=== PATIENT | female | born 1985 | race African-American/Black ===

== ENCOUNTER 2018-06-23 12:16 | Emergency (ER) | payer SELFPAY ==
[~2018-06-23] VITALS: Ht 162.6 cm; Wt 74.4 kg
[2018-06-23 12:21] VITALS: BP 127/89
[2018-06-23] MEDS ORDERED: LISINOPRIL5 MG ORAL (12:26)
--- NOTE | 2018-06-23 12:30 | NUR ---
ED Nurse Note: Patient walked into ED c/o right lower quadrant abdominal pain for 2 days. patient also reports vaginal spotting started 2 days ago, denies any dysuria. patient reports hx of endometriosis, partial hysterectomy done in 2018. patient is alert awake x4 ambulatory, daughter by the beside
--- NOTE | 2018-06-23 13:11 | Emergency Room Report ---
History of Present Illness General Chief Complaint: Abdominal Pain Source: Patient Present Illness HPI 32-year-old female presents to the emergency department complaining of 10 out of 10 in severity right lower quadrant/adnexal pain and tenderness since last night. Patient reports history of endometriosis which required a partial hysterectomy which was performed this past February 2018. Patient states that she also has had some new onset vaginal spotting after just having her period 2 weeks ago. She denies fevers or chills she reports nausea denies vomiting, constipation, diarrhea, external vaginal lesions, swollen tender lymph nodes or joint pain. Patient does report some scant vaginal discharge she denies recent antibiotic use she reports that she is sexually active and in a monogamous relationship. She also reports history of ovarian cyst. He reports increased pressure pain especially during urination she denies dysuria, hematuria, urinary frequency or urgency. Denies low back pain. Allergies: Coded Allergies: AMOXICILLIN (Verified Allergy, Severe, Hives, 06/23/18) IBUPROFEN (Verified Allergy, Severe, Rash, 06/23/18) Patient History Past Medical History: see triage record Past Surgical History: none Pertinent Family History: none Last Menstrual Period: 2 months Now: No Reviewed Nursing Documentation: PMH: Agreed; PSxH: Agreed Nursing Documentation-PMH Past Medical History: No History, Except For Hx Hypertension: Yes Review of Systems All Other Systems: negative except mentioned in HPI Physical Exam Vital Signs Date Time Temp Pulse Resp B/P (MAP) Pulse Ox O2 Delivery O2 Flow Rate FiO2 06/23/18 12:21 98.1 101 20 127/89 98 Room Air Sp02 EP Interpretation: reviewed, normal General Appearance: no apparent distress, alert, GCS 15, non-toxic Head: normocephalic, atraumatic Eyes: bilateral eye normal inspection, bilateral eye PERRL ENT: hearing grossly normal, normal voice Neck: full range of motion Respiratory: lungs clear, normal breath sounds, speaking full sentences Cardiovascular #1: regular rate, rhythm Gastrointestinal: normal bowel sounds, soft, non-distended, tenderness - RLQ/ Right adnexal. pt. has positive rosvigs tenderness on exam. Rectal: deferred Genitourinary: normal inspection, no CVA tenderness, ext genitalia/vag normal, other - pt. with severe vaginal sensitivity, and CMT Musculoskeletal: back normal, gait/station normal, normal range of motion, non- tender Neurologic: alert, oriented x3, responsive, motor strength/tone normal, sensory intact, speech normal, grossly normal Psychiatric: judgement/insight normal Skin: normal color, no rash, warm/dry, well hydrated Lymphatic: no adenopathy Medical Decision Making PA Attestation Dr. tang is my supervising Physician whom patient management has been discussed with. Diagnostic Impression: Primary Impression: Pelvic pain ER Course 32-year-old female presents to the emergency department complaining of 10 out of 10 in severity right lower quadrant/adnexal pain and tenderness since last night. Patient reports history of endometriosis which required a partial hysterectomy which was performed this past February 2018. Patient states that she also has had some new onset vaginal spotting after just having her period 2 weeks ago. She denies fevers or chills she reports nausea denies vomiting, constipation, diarrhea, external vaginal lesions, swollen tender lymph nodes or joint pain. Patient does report some scant vaginal discharge she denies recent antibiotic use she reports that she is sexually active and in a monogamous relationship. She also reports history of ovarian cyst. He reports increased pressure pain especially during urination she denies dysuria, hematuria, urinary frequency or urgency. Denies low back pain or hx of renal calculi. Ddx considered but are not limited to Diverticulitis, acute appy, ovarian torsion, ectopic , PID tubo-ovarian abscess, ovarian cyst, renal calculi. Vital signs: are WNL, pt. is afebrile H&PE are most consistent with possible ovarian cyst, however due to presentation will r/o torsion, ectopic, acute appendicitis and stone. ORDERS: -CBC, CMP, LIPASE: Unremarkable -UA: -URINE HCG: Negative -CT Abdomen and pelvis: unremarkable--" No definite acute abnormality, fatty liver, evidence of prior cholecystectomy and hysterectomy." Per official radiology report- Please see report for specific details. -Pelvic US Complete: limited exam due to pt. having tenderness to vaginal probe , ovaries were not visualized. this was d/w pt. that conditions such as torsion cannot be r/o . ED INTERVENTIONS: - Morphine 4mg IV x 2 - 5mg [place] - 2g Azithromycin Pt. requests to be D/C, she will follow up with an OBGYN. pt. given strict ED return precautions. d/w pt. that due to severe tenderness and notable d/c on pelvic exam she will be treated for PID. Due to allergies alternative treatment is 2g Azithromycin. DISCHARGE: At this time pt. is stable for d/c to home. Will provide printed patient care instructions, and any necessary prescriptions. Care plan and follow up instructions have been discussed with the patient prior to discharge. Labs Test 06/23/18 12:30 06/23/18 13:15 Urine Color Pale yellow Urine Appearance Clear Urine pH 8 (4.5-8.0) Urine Specific [place] 1.010 (1.005-1.035) Urine Protein Negative (NEGATIVE) Urine Glucose (UA) Negative (NEGATIVE) Urine Ketones Negative (NEGATIVE) Urine Blood Negative (NEGATIVE) Urine Nitrite Negative (NEGATIVE) Urine Bilirubin Negative (NEGATIVE) Urine Urobilinogen Normal MG/DL (0.0-1.0) Urine Leukocyte Esterase 2+ (NEGATIVE) Urine RBC 0 /HPF (0 - 2) Urine WBC 2-4 /HPF (0 - 2) Urine Squamous Epithelial Cells Few /LPF (NONE/OCC) Urine Bacteria Occasional /HPF (NONE) Urine HCG, Qualitative Negative (NEGATIVE) White Blood Count 9.4 K/UL (4.8-10.8) Red Blood Count 4.76 M/UL (4.20-5.40) Hemoglobin 13.9 G/DL (12.0-16.0) Hematocrit 41.8 % (37.0-47.0) Mean Corpuscular Volume 88 FL (80-99) Mean Corpuscular Hemoglobin 29.2 PG (27.0-31.0) Mean Corpuscular Hemoglobin Concent 33.3 G/DL (32.0-36.0) Red Cell Distribution Width 11.9 % (11.6-14.8) Platelet Count 287 K/UL (150-450) Mean Platelet Volume 12.3 FL (6.5-10.1) Neutrophils (%) (Auto) % (45.0-75.0) Lymphocytes (%) (Auto) % (20.0-45.0) Monocytes (%) (Auto) % (1.0-10.0) Eosinophils (%) (Auto) % (0.0-3.0) Basophils (%) (Auto) % (0.0-2.0) Differential Total Cells Counted 100 Neutrophils % (Manual) 44 % (45-75) Lymphocytes % (Manual) 50 % (20-45) Monocytes % (Manual) 6 % (1-10) Eosinophils % (Manual) 0 % (0-3) Basophils % (Manual) 0 % (0-2) Band Neutrophils 0 % (0-8) Platelet Estimate Adequate Platelet Morphology Normal Red Blood Cell Morphology Normal Sodium Level 141 MMOL/L (136-145) Potassium Level 3.6 MMOL/L (3.5-5.1) Chloride Level 102 MMOL/L (98-107) Carbon Dioxide Level 27 MMOL/L (21-32) Anion Gap 12 mmol/L (5-15) Blood Urea Nitrogen 9 mg/dL (7-18) Creatinine 0.9 MG/DL (0.55-1.30) Estimat Glomerular Filtration Rate > 60 mL/min (>60) Glucose Level 97 MG/DL (74-106) Calcium Level 9.2 MG/DL (8.5-10.1) Total Bilirubin 0.3 MG/DL (0.2-1.0) Aspartate Amino Transf (AST/SGOT) 18 U/L (15-37) Alanine Aminotransferase (ALT/SGPT) 32 U/L (12-78) Alkaline Phosphatase 92 U/L (46-116) Total Protein 8.5 G/DL (6.4-8.2) Albumin 3.8 G/DL (3.4-5.0) Globulin 4.7 g/dL Albumin/Globulin Ratio 0.8 (1.0-2.7) Lipase 341 U/L (73-393) CT/MRI/US Diagnostic Results CT/MRI/US Diagnostic Results #1: Imaging Test Ordered: CT Abdomen and Pelvis Impression " No definite acute abnormality, fatty liver, evidence of prior cholecystectomy and hysterectomy." Per official radiology report- Please see report for specific details. CT/MRI/US Diagnostic Results #2: Imaging Test Ordered: Pelvic US- complete Impression "Limited exam due to lack of endovaginal images and bladder distention the uterus is not demonstrated reportedly surgically absent neither ovary can be visualized" -- Per official radiology report- Please see report for specific details. Last Vital Signs Date Time Temp Pulse Resp B/P (MAP) Pulse Ox O2 Delivery O2 Flow Rate FiO2 06/23/18 12:21 98.1 101 20 127/89 98 Room Air Status: improved Disposition: HOME, SELF-CARE Condition: Stable Scripts Hydrocodone Bit/Acetaminophen 7.5-325* (NORCO 7.5-325*) 1 Each Tablet 1 TAB ORAL Q6H PRN for For Pain, #12 TAB 0 Refills Prov: Lissett Tam 06/23/18 Patient Instructions: Pelvic Pain, Female Additional Instructions: Take medications as directed. Follow up with a OBGYN within 3 days, even if your symptoms have resolved. Return sooner to ED if new symptoms occur, or current symptoms become worse. - Please note that this Emergency Department Report was dictated using [employer] pit attendant technology software, occasionally this can lead to erroneous entry secondary to interpretation by the dictation equipment. Lissett Tam Jun 23, 2018 13:11
[2018-06-23] MEDS ORDERED: Morphine Sulfate 4mg/ml Inj (IV USE ONLY) IVP ONE ×2 (13:15→15:15)
[2018-06-23 13:39] LABS: APPEARANCE,URINE CLEAR; BILIRUBIN, URINE NEGATIVE (NEGATIVE); COLOR,URINE PALE YELLOW; GLUCOSE, URINE (UA) NEGATIVE (NEGATIVE); KETONES,URINE NEGATIVE (NEGATIVE); LEUKOCYTE ESTERASE ,URINE 2+ (NEGATIVE); NITRITE,URINE NEGATIVE (NEGATIVE); PH,URINE 8 (4.5-8.0); PROTEIN,URINE NEGATIVE (NEGATIVE); UROBILINOGEN,URINE NORMAL MG/DL (0.0-1.0)
[2018-06-23 13:39] LABS: HEMATOCRIT 41.8 % (37.0-47.0); HEMOGLOBIN 13.9 G/DL (12.0-16.0); MEAN CORPUSCULAR VOLUME 88 FL (80-99); RED BLOOD COUNT 4.76 M/UL (4.20-5.40); RED CELL DISTRIBUTION WIDTH 11.9 % (11.6-14.8); WHITE BLOOD COUNT 9.4 K/UL (4.8-10.8)
[2018-06-23 13:56] VITALS: BP 121/82
[2018-06-23 14:01] LABS: ANION GAP 12 mmol/L (5-15); BLOOD UREA NITROGEN 9 mg/dL (7-18); CALCIUM 9.2 MG/DL (8.5-10.1); CARBON DIOXIDE 27 MMOL/L (21-32); CHLORIDE 102 MMOL/L (98-107); CREATININE 0.9 MG/DL (0.55-1.30); POTASSIUM 3.6 MMOL/L (3.5-5.1); SODIUM 141 MMOL/L (136-145)
[2018-06-23 14:05] LABS: ALANINE AMINOTRANSFERASE 32 U/L (12-78); ALBUMIN 3.8 G/DL (3.4-5.0); ALBUMIN/GLOBULIN RATIO 0.8 (1.0-2.7); ALKALINE PHOSPHATASE 92 U/L (46-116); ASPARTATE AMINO TRANSFERASE 18 U/L (15-37); BILIRUBIN,TOTAL 0.3 MG/DL (0.2-1.0)
--- NOTE | 2018-06-23 14:15 | NUR ---
ED Nurse Note: patient went down for CT scan
[2018-06-23 14:27] LABS: PLATELET COUNT 287 K/UL (150-450)
[2018-06-23] MEDS ORDERED: DiphenhydrAMINE 50mg/ml Inj IVP ONE (14:45)
[2018-06-23] MEDS: HYDROcodone/Acetamin 7.5/325 tab ORAL ONE ×2 (14:56→15:08)
--- NOTE | 2018-06-23 14:56 | Diagnostic Imaging Report ---
Clinical Indication: Right lower quadrant abdominal pain for 2 days Technique: No oral contrast utilized, per emergency room physician request IV administration nonionic contrast. Venous phase spiral acquisition obtained through the abdomen and pelvis. Multiplanar reconstructions were generated. Total dose length product 990.16 mGycm. CTDIvol(s) 18.16 mGy. Dose reduction achieved using automated exposure control Comparison: none Findings: Lack of enteric contrast limits assessment of the GI tract. The appendix is normal. No small bowel distention. No evidence of diverticulosis or diverticulitis. No free or loculated intraperitoneal gas or fluid is evident. The gallbladder is surgically absent. The liver is diffusely hypoattenuating. No focal abnormality. No biliary ductal dilatation. The pancreas, spleen, adrenals, kidneys are unremarkable. No retroperitoneal or mesenteric mass or adenopathy. Uterus is surgically absent. No pelvic mass or adenopathy. The included lung bases are clear. The bones are unremarkable Impression: Limited assessment of the GI tract, due to lack of enteric contrast administration No definite acute abnormality Fatty liver Evidence of prior cholecystectomy and hysterectomy The CT scanner at [facility] is accredited by the [employer] and the scans are performed using protocols designed to limit radiation exposure to as low as reasonably achievable to attain images of sufficient resolution adequate for diagnostic evaluation.
--- NOTE | 2018-06-23 15:05 | NUR ---
ED Nurse Note: Patient could not swallow the norco tablet, patient states that it hurts her throat to swallow the pill. patient spit out the pill into the water cup. patient stated that she cannot tolerate anything by mouth at this time. notified JOAO Galeana.
--- NOTE | 2018-06-23 16:58 | NUR ---
ED Nurse Note: u/s at bedside
--- NOTE | 2018-06-23 17:35 | Diagnostic Imaging Report ---
Indication: Pelvic pain Technique: Transabdominal images only. Patient unable to tolerate transvaginal images Comparison: Reference made to CT scan performed earlier the same day Findings: Exam is very limited, due to lack of endovaginal images, as well as lack of bladder distention limiting transabdominal evaluation. The uterus is not demonstrated, reportedly surgically absent. Neither ovary could be identified Impression: . Limited exam, as described Nonvisualized uterus, reportedly patient has had prior hysterectomy Neither ovary could be visualized
[2018-06-23] MEDS ORDERED: NORCO 7.5-3251 EACH ORAL (18:44)
[2018-06-23] MEDS: Azithromycin 250mg tab ORAL ONE ×2 (18:45→18:54)
--- NOTE | 2018-06-23 19:00 | NUR ---
ED Nurse Note: ATTEMPTED TO ADMINISTER ZITHROMAX THAT IS PRESCRIBED FOR HER, PATIENT REFUSED TO TAKE IT WITHOUT FOOD IN HER STOMACH. SANDWICH AND JUICE PROVIDED TO THE PATIENT. ENDORSED TO KONSTANTIN DELGADO.
--- NOTE | 2018-06-23 19:09 | NUR ---
HAND-OFF: Report given to KONSTANTIN DELGADO.
--- NOTE | 2018-06-23 19:16 | NUR ---
ED Nurse Note: PATIENT LEFT WITHOUT TAKING AZITHROMYCIN, PATIENT JUST LEFT THE DEPARTMENT WITHOUT WAITING FOR THE NURSE, STATING THAT "I ALREADY TOOK THE MEDICATION." PATIENT'S IV WAS REMOVED BY NAYA RN WITHOUT COMPLICATION PATIENT LEFT THE DEPARTMENT WITHOUT SIGNING THE PAPER, WITHOUT TAKING THE PRESCRIPTION. INSTRUCTION WAS GIVEN TO THE PATIENT TO FOLLOW UP WITH HER OBGYN Patient is cleared to be discharged per JOSE HATCH, pt is aox4, on room air, with stable vital signS, pt ambulateD OUT OF ED with steady gait WITH HER DAUGHTER. pt took all belongings
[2018-06-23 21:00] VITALS: BP 121/82
== END 2018-06-23 21:00 | disposition home or self-care (01) ==
LOC: EMR 13:40
DX: R10.2 Pelvic and perineal pain (principal); I10 Essential (primary) hypertension; K76.0 Fatty (change of) liver, not elsewhere classified; Z90.49 Acquired absence of other specified parts of digestive tract; Z90.710 Acquired absence of both cervix and uterus
CPT/HCPCS: 36415; 74177; 76856; 80053; 81003; 81025; 83690; 85007; 85025; 87210; 96361; 96374; 96375; 96376; 99284; J1200; J2270; J2405; Q9967